=== PATIENT | male | born 1990 | race Caucasian/White ===

== ENCOUNTER 2018-05-31 21:33 | Observation (INO) ==
[2018-05-31] MEDS ORDERED: Sod Chloride 0.9% Inj 1,000 ML IV.SIG ONE ×2 (21:59→22:01)
[2018-05-31] MEDS ORDERED: Pantoprazole Inj 40 MG Vial IV.PUSH STA (22:10)
--- NOTE | 2018-05-31 22:10 | ED ---
HPI General Chief complaint: Arrhythmia/Palpitations Stated complaint: Blood pressure up/Racing heart/Nausea/V x 1 mo Time Seen by Provider: 05/31/18 21:53 History of Present Illness HPI narrative: 27-year-old male here for evaluation of nausea vomiting for the last month . Patient drinks heavily at least 6 packs a day, has been having nausea and vomiting, today he woke up with palpitations and only had one beer because he was not feeling well, he came to the ER for further evaluation. He denies any blood in the stool or in the vomit, he has no abdominal pain or chest pain or shortness of breath. Related Data Home Medications Medication Instructions Recorded Confirmed No Known Home Medications 05/31/18 05/31/18 Previous Rx's Medication Instructions Recorded chlordiazepoxide HCl 10 mg PO Q12HR #10 cap 06/02/18 escitalopram oxalate [Lexapro] 10 mg PO DAILY #30 tab 06/02/18 pantoprazole [Protonix] 40 mg PO DAILY #14 tab 06/02/18 Allergies Allergy/AdvReac Type Severity Reaction Status Date / Time No Known Allergies Allergy Unverified 05/31/18 22:20 Review of Systems Except as stated in HPI: all other systems reviewed are negative [facility] Family History Family History Other Coronary disease DM type 2 (diabetes mellitus, type 2) Hypertension Social History Social History Substance History: No History of Abuse Second Hand Smoke Exposure: No Smoking Status: Never smoker How Often Do You Have a Drink Containing Alcohol: 4 or more times a week (1.5 L of liquor) Recent Travel in [facility] within the Last 8 Weeks: No Recent Out of Country Travel within the Last 8 Weeks: No Exam Narrative Exam Narrative: GENERAL: Alert oriented 3, tachycardia SKIN: Focused skin assessment warm/dry. HEAD: Atraumatic. Normocephalic. EYES: Pupils equal and round. No scleral icterus. No injection or drainage. ENT: No nasal bleeding or discharge. Mucous membranes pink and moist. NECK: Trachea midline. No JVD. CARDIOVASCULAR: Regular rate and rhythm. No murmur appreciated. RESPIRATORY: No accessory muscle use. Clear to auscultation. Breath sounds equal bilaterally. GASTROINTESTINAL: Abdomen soft, non-tender, nondistended. Hepatic and splenic margins not palpable. MUSCULOSKELETAL: No obvious deformities. No clubbing. No cyanosis. No edema. NEUROLOGICAL: Awake and alert. No obvious cranial nerve deficits. Motor grossly within normal limits. Normal speech. PSYCHIATRIC: Appropriate mood and affect; insight and judgment normal. Procedures Hemaprompt Stool Procedural Steps Taken: specimen placed in appropriate test area Hemaprompt Stool Result: positive Course Initial Documented Vital Signs Temperature 99.0 F 05/31/18 21:45 Pulse Rate 138 H 05/31/18 21:45 Respiratory Rate 18 05/31/18 21:45 Blood Pressure 159/114 H 05/31/18 21:45 Pulse Oximetry 97 05/31/18 21:45 Last Documented Vital Signs Temperature 97.7 F 06/02/18 16:00 Pulse Rate 80 06/02/18 16:00 Respiratory Rate 18 06/02/18 16:00 Blood Pressure 136/95 H 06/02/18 16:00 Pulse Oximetry 98 06/02/18 16:00 Medical Decision Making MDM Narrative Medical decision making narrative: 27-year-old male here for evaluation of nausea vomiting and tachycardia, when arrived to the ER heart rate was 130, sinus rhythm, rectal exam positive for occult blood.27-year-old male here for evaluation of nausea vomiting and tachycardia, when arrived to the ER heart rate was 130, sinus rhythm, rectal exam positive for occult blood. Patient will be admitted for further evaluation. Lab Data Result diagrams: 06/02/18 04:42 06/02/18 04:42 Lab Results 05/31/18 05/31/18 05/31/18 Range/Units 22:07 22:07 22:07 CBC w Diff Slide review pending WBC 3.4 L (4.0-11.0) th/mm3 RBC 4.27 L (4.50-5.90) mil/mm3 Hgb 14.2 (13.0-17.0) gm/dL Hct 41.7 (39.0-51.0) % MCV 97.6 (80.0-100.0) fL MCH 33.3 (27.0-34.0) pg MCHC 34.1 (32.0-36.0) % RDW 14.1 (11.6-17.2) % Plt Count 147 L (150-450) th/mm3 MPV 8.5 (7.0-11.0) fL Neut % (Auto) (16.0-70.0) % Lymph % (Auto) (9.0-44.0) % [place] % (Auto) (0.0-8.0) % Eos % (Auto) (0.0-4.0) % Baso % (Auto) (0.0-2.0) % Neut # (Auto) (1.8-7.7) th/mm3 Lymph # (Auto) (1.0-4.8) th/mm3 [place] # (Auto) (0.0-0.9) th/mm3 Eos # (Auto) (0.0-0.4) th/mm3 Baso # (Auto) (0.0-0.2) th/mm3 WBC Differential Manual diff final Seg Neuts % (Manual) 57 (16-70) % Lymphocytes % (Manual) 37 (9-44) % Monocytes % (Manual) 4 (0-8) % Basophils % (Manual) 2 (0-2) % Abs Neuts (Manual) 1.9 (1.8-7.7) th/mm3 Differential Comment . Platelet Estimate Low L (Normal) Platelet Morphology Normal (Normal) RBC Morphology Normal (Normal) PT (9.8-11.6) sec INR Ratio APTT (24.3-30.1) sec Sodium 135 L (136-145) meq/L Potassium 3.4 L (3.5-5.1) meq/L Chloride 98 (98-107) meq/L Carbon Dioxide 25.6 (21.0-32.0) meq/L Anion Gap 11 (5-15) meq/L BUN 7 (7-18) mg/dL Creatinine 1.00 (0.60-1.30) mg/dL Estimated GFR Greater than 89 (>89) mL/min Random Glucose 109 H (74-106) mg/dL Calcium 9.0 (8.5-10.1) mg/dL Iron (65-175) mcg/dL TIBC (250-450) mcg/dL % Saturation (20-50) % Total Bilirubin 1.8 H (0.2-1.0) mg/dL Direct Bilirubin (0.0-0.2) mg/dL Indirect Bilirubin (0.0-0.8) mg/dL AST 566 H (15-37) U/L ALT 259 H (12-78) U/L Alkaline Phosphatase 116 (45-117) U/L Ammonia (11-32) mcmol/L Total Protein 8.3 H (6.4-8.2) g/dL Albumin 3.7 (3.4-5.0) g/dL Ceruloplasmin (18-36) mg/dL TSH (0.358-3.740) uIU/mL Free T3 (2.18-3.98) pg/mL Urine Color (Yellw/Straw) Urine Clarity (Clear) Urine pH (5.0-8.5) Ur Specific [place] (1.002-1.035) Urine Protein (Neg-Trace) mg/dL Urine Glucose (UA) (Negative) mg/dL Urine Ketones (Negative) mg/dL Urine Occult Blood (Negative) Urine Nitrate (Negative) Urine Bilirubin (Negative) Urine Urobilinogen (Less than 2) mg/dL Ur Leukocyte Esterase (Negative) Ur Squamous Epith Cells (0-5) /hpf Micro UA Comment Urine Culture Comments IgA (81-463) mg/dL Rheumatoid Factor (<14) IU/mL VERNON Screen (NEGATIVE) VERNON Titer VERNON Pattern SS-A Antibody (<1.0 NEGATIVE) AI SS-B Antibody (<1.0 NEGATIVE) AI Sm (Colon) Antibody (<1.0 NEGATIVE) AI SM/AUDITOR IN CHARGE Antibody (<1.0 NEGATIVE) AI Scl-70 Antibody (<1.0 NEGATIVE) AI Anti-ds DNA Titer (Crith) Anti-ds DNA (Crithidia) (NEGATIVE) Mitochondria M2 IgG Ab (0-20.0) U Anti-Smooth Muscle Ab (Negative) Endomysial Ab Titer Endomysial IgA Ab Tiss Transglutamin IgG Tiss Transglutamin IgA (0-4) U/mL Celiac Disease Interp Hepatitis A IgM Ab (Nonreactive) Hep Bs Antigen (Nonreactive) Hep B Core IgM Ab (Nonreactive) Hep C IgG Ab (Nonreactive) Blood Type O Positive Blood Type Recheck Required Antibody Screen Negative 05/31/18 05/31/18 06/01/18 Range/Units 22:07 22:58 05:20 CBC w Diff WBC (4.0-11.0) th/mm3 RBC (4.50-5.90) mil/mm3 Hgb (13.0-17.0) gm/dL Hct (39.0-51.0) % MCV (80.0-100.0) fL MCH (27.0-34.0) pg MCHC (32.0-36.0) % RDW (11.6-17.2) % Plt Count (150-450) th/mm3 MPV (7.0-11.0) fL Neut % (Auto) (16.0-70.0) % Lymph % (Auto) (9.0-44.0) % [place] % (Auto) (0.0-8.0) % Eos % (Auto) (0.0-4.0) % Baso % (Auto) (0.0-2.0) % Neut # (Auto) (1.8-7.7) th/mm3 Lymph # (Auto) (1.0-4.8) th/mm3 [place] # (Auto) (0.0-0.9) th/mm3 Eos # (Auto) (0.0-0.4) th/mm3 Baso # (Auto) (0.0-0.2) th/mm3 WBC Differential Seg Neuts % (Manual) (16-70) % Lymphocytes % (Manual) (9-44) % Monocytes % (Manual) (0-8) % Basophils % (Manual) (0-2) % Abs Neuts (Manual) (1.8-7.7) th/mm3 Differential Comment Platelet Estimate (Normal) Platelet Morphology (Normal) RBC Morphology (Normal) PT 10.5 (9.8-11.6) sec INR 1.0 Ratio APTT 22.7 L (24.3-30.1) sec Sodium 139 (136-145) meq/L Potassium 3.5 (3.5-5.1) meq/L Chloride 102 (98-107) meq/L Carbon Dioxide 27.0 (21.0-32.0) meq/L Anion Gap 10 (5-15) meq/L BUN 5 L (7-18) mg/dL Creatinine 0.92 (0.60-1.30) mg/dL Estimated GFR Greater than 89 (>89) mL/min Random Glucose 100 (74-106) mg/dL Calcium 8.2 L D (8.5-10.1) mg/dL Iron (65-175) mcg/dL TIBC (250-450) mcg/dL % Saturation (20-50) % Total Bilirubin 1.8 H (0.2-1.0) mg/dL Direct Bilirubin (0.0-0.2) mg/dL Indirect Bilirubin (0.0-0.8) mg/dL AST 399 H (15-37) U/L ALT 207 H (12-78) U/L Alkaline Phosphatase 88 (45-117) U/L Ammonia (11-32) mcmol/L Total Protein 6.8 D (6.4-8.2) g/dL Albumin 3.2 L (3.4-5.0) g/dL Ceruloplasmin (18-36) mg/dL TSH (0.358-3.740) uIU/mL Free T3 (2.18-3.98) pg/mL Urine Color Yellow (Yellw/Straw) Urine Clarity Clear (Clear) Urine pH 6.0 (5.0-8.5) Ur Specific [place] Less/equal 1.005 (1.002-1.035) Urine Protein Negative (Neg-Trace) mg/dL Urine Glucose (UA) Negative (Negative) mg/dL Urine Ketones Negative (Negative) mg/dL Urine Occult Blood Negative (Negative) Urine Nitrate Negative (Negative) Urine Bilirubin Negative (Negative) Urine Urobilinogen 0.2 (Less than 2) mg/dL Ur Leukocyte Esterase Negative (Negative) Ur Squamous Epith Cells 0-5 (0-5) /hpf Micro UA Comment Culture not ind Urine Culture Comments Culture not ind IgA (81-463) mg/dL Rheumatoid Factor (<14) IU/mL VERNON Screen (NEGATIVE) VERNON Titer VERNON Pattern SS-A Antibody (<1.0 NEGATIVE) AI SS-B Antibody (<1.0 NEGATIVE) AI Sm (Colon) Antibody (<1.0 NEGATIVE) AI SM/AUDITOR IN CHARGE Antibody (<1.0 NEGATIVE) AI Scl-70 Antibody (<1.0 NEGATIVE) AI Anti-ds DNA Titer (Crith) Anti-ds DNA (Crithidia) (NEGATIVE) Mitochondria M2 IgG Ab (0-20.0) U Anti-Smooth Muscle Ab (Negative) Endomysial Ab Titer Endomysial IgA Ab Tiss Transglutamin IgG Tiss Transglutamin IgA (0-4) U/mL Celiac Disease Interp Hepatitis A IgM Ab (Nonreactive) Hep Bs Antigen (Nonreactive) Hep B Core IgM Ab (Nonreactive) Hep C IgG Ab (Nonreactive) Blood Type Blood Type Recheck Antibody Screen 06/01/18 06/01/18 06/01/18 Range/Units 05:25 12:40 12:40 CBC w Diff Auto diff final WBC 3.7 L (4.0-11.0) th/mm3 RBC 3.80 L (4.50-5.90) mil/mm3 Hgb 12.6 L (13.0-17.0) gm/dL Hct 37.2 L (39.0-51.0) % MCV 97.8 (80.0-100.0) fL MCH 33.3 (27.0-34.0) pg MCHC 34.0 (32.0-36.0) % RDW 13.8 (11.6-17.2) % Plt Count 126 L (150-450) th/mm3 MPV 8.8 (7.0-11.0) fL Neut % (Auto) 43.2 (16.0-70.0) % Lymph % (Auto) 47.3 H (9.0-44.0) % [place] % (Auto) 8.0 (0.0-8.0) % Eos % (Auto) 0.7 (0.0-4.0) % Baso % (Auto) 0.8 (0.0-2.0) % Neut # (Auto) 1.6 L (1.8-7.7) th/mm3 Lymph # (Auto) 1.8 (1.0-4.8) th/mm3 [place] # (Auto) 0.3 (0.0-0.9) th/mm3 Eos # (Auto) 0.0 (0.0-0.4) th/mm3 Baso # (Auto) 0.0 (0.0-0.2) th/mm3 WBC Differential . Seg Neuts % (Manual) (16-70) % Lymphocytes % (Manual) (9-44) % Monocytes % (Manual) (0-8) % Basophils % (Manual) (0-2) % Abs Neuts (Manual) (1.8-7.7) th/mm3 Differential Comment . Platelet Estimate (Normal) Platelet Morphology (Normal) RBC Morphology (Normal) PT (9.8-11.6) sec INR Ratio APTT (24.3-30.1) sec Sodium (136-145) meq/L Potassium (3.5-5.1) meq/L Chloride (98-107) meq/L Carbon Dioxide (21.0-32.0) meq/L Anion Gap (5-15) meq/L BUN (7-18) mg/dL Creatinine (0.60-1.30) mg/dL Estimated GFR (>89) mL/min Random Glucose (74-106) mg/dL Calcium (8.5-10.1) mg/dL Iron (65-175) mcg/dL TIBC (250-450) mcg/dL % Saturation (20-50) % Total Bilirubin (0.2-1.0) mg/dL Direct Bilirubin (0.0-0.2) mg/dL Indirect Bilirubin (0.0-0.8) mg/dL AST (15-37) U/L ALT (12-78) U/L Alkaline Phosphatase (45-117) U/L Ammonia 65 H (11-32) mcmol/L Total Protein (6.4-8.2) g/dL Albumin (3.4-5.0) g/dL Ceruloplasmin (18-36) mg/dL TSH (0.358-3.740) uIU/mL Free T3 (2.18-3.98) pg/mL Urine Color (Yellw/Straw) Urine Clarity (Clear) Urine pH (5.0-8.5) Ur Specific [place] (1.002-1.035) Urine Protein (Neg-Trace) mg/dL Urine Glucose (UA) (Negative) mg/dL Urine Ketones (Negative) mg/dL Urine Occult Blood (Negative) Urine Nitrate (Negative) Urine Bilirubin (Negative) Urine Urobilinogen (Less than 2) mg/dL Ur Leukocyte Esterase (Negative) Ur Squamous Epith Cells (0-5) /hpf Micro UA Comment Urine Culture Comments IgA (81-463) mg/dL Rheumatoid Factor (<14) IU/mL VERNON Screen (NEGATIVE) VERNON Titer VERNON Pattern SS-A Antibody (<1.0 NEGATIVE) AI SS-B Antibody (<1.0 NEGATIVE) AI Sm (Colon) Antibody (<1.0 NEGATIVE) AI SM/AUDITOR IN CHARGE Antibody (<1.0 NEGATIVE) AI Scl-70 Antibody (<1.0 NEGATIVE) AI Anti-ds DNA Titer (Crith) Anti-ds DNA (Crithidia) (NEGATIVE) Mitochondria M2 IgG Ab (0-20.0) U Anti-Smooth Muscle Ab (Negative) Endomysial Ab Titer Endomysial IgA Ab Tiss Transglutamin IgG Tiss Transglutamin IgA (0-4) U/mL Celiac Disease Interp Hepatitis A IgM Ab Nonreactive (Nonreactive) Hep Bs Antigen Nonreactive (Nonreactive) Hep B Core IgM Ab Nonreactive (Nonreactive) Hep C IgG Ab Nonreactive (Nonreactive) Blood Type Blood Type Recheck Antibody Screen 06/01/18 06/01/18 06/01/18 Range/Units 18:15 18:15 18:15 CBC w Diff WBC 3.5 L (4.0-11.0) th/mm3 RBC 3.63 L (4.50-5.90) mil/mm3 Hgb 12.4 L (13.0-17.0) gm/dL Hct 35.1 L (39.0-51.0) % MCV 96.8 (80.0-100.0) fL MCH 34.1 H (27.0-34.0) pg MCHC 35.3 (32.0-36.0) % RDW 14.4 (11.6-17.2) % Plt Count 125 L (150-450) th/mm3 MPV 9.2 (7.0-11.0) fL Neut % (Auto) (16.0-70.0) % Lymph % (Auto) (9.0-44.0) % [place] % (Auto) (0.0-8.0) % Eos % (Auto) (0.0-4.0) % Baso % (Auto) (0.0-2.0) % Neut # (Auto) (1.8-7.7) th/mm3 Lymph # (Auto) (1.0-4.8) th/mm3 [place] # (Auto) (0.0-0.9) th/mm3 Eos # (Auto) (0.0-0.4) th/mm3 Baso # (Auto) (0.0-0.2) th/mm3 WBC Differential Seg Neuts % (Manual) (16-70) % Lymphocytes % (Manual) (9-44) % Monocytes % (Manual) (0-8) % Basophils % (Manual) (0-2) % Abs Neuts (Manual) (1.8-7.7) th/mm3 Differential Comment Platelet Estimate (Normal) Platelet Morphology (Normal) RBC Morphology (Normal) PT (9.8-11.6) sec INR Ratio APTT (24.3-30.1) sec Sodium 138 (136-145) meq/L Potassium 3.4 L (3.5-5.1) meq/L Chloride 104 (98-107) meq/L Carbon Dioxide 25.5 (21.0-32.0) meq/L Anion Gap 9 (5-15) meq/L BUN 7 (7-18) mg/dL Creatinine 0.89 (0.60-1.30) mg/dL Estimated GFR Greater than 89 (>89) mL/min Random Glucose 162 H (74-106) mg/dL Calcium 8.4 L (8.5-10.1) mg/dL Iron 80 (65-175) mcg/dL TIBC 190 L (250-450) mcg/dL % Saturation 42.0 (20-50) % Total Bilirubin 1.9 H (0.2-1.0) mg/dL Direct Bilirubin (0.0-0.2) mg/dL Indirect Bilirubin (0.0-0.8) mg/dL AST 421 H (15-37) U/L ALT 203 H (12-78) U/L Alkaline Phosphatase 99 (45-117) U/L Ammonia (11-32) mcmol/L Total Protein 6.9 (6.4-8.2) g/dL Albumin 3.0 L (3.4-5.0) g/dL Ceruloplasmin 15 L (18-36) mg/dL TSH 5.930 H (0.358-3.740) uIU/mL Free T3 (2.18-3.98) pg/mL Urine Color (Yellw/Straw) Urine Clarity (Clear) Urine pH (5.0-8.5) Ur Specific [place] (1.002-1.035) Urine Protein (Neg-Trace) mg/dL Urine Glucose (UA) (Negative) mg/dL Urine Ketones (Negative) mg/dL Urine Occult Blood (Negative) Urine Nitrate (Negative) Urine Bilirubin (Negative) Urine Urobilinogen (Less than 2) mg/dL Ur Leukocyte Esterase (Negative) Ur Squamous Epith Cells (0-5) /hpf Micro UA Comment Urine Culture Comments IgA 349 (81-463) mg/dL Rheumatoid Factor Less than 14 (<14) IU/mL VERNON Screen Negative (NEGATIVE) VERNON Titer ND VERNON Pattern ND SS-A Antibody <1.0 neg (<1.0 NEGATIVE) AI SS-B Antibody <1.0 neg (<1.0 NEGATIVE) AI Sm (Colon) Antibody <1.0 neg (<1.0 NEGATIVE) AI SM/AUDITOR IN CHARGE Antibody <1.0 neg (<1.0 NEGATIVE) AI Scl-70 Antibody <1.0 neg (<1.0 NEGATIVE) AI Anti-ds DNA Titer (Crith) ND Anti-ds DNA (Crithidia) Negative (NEGATIVE) Mitochondria M2 IgG Ab Less than 20.0 (0-20.0) U Anti-Smooth Muscle Ab Negative (Negative) Endomysial Ab Titer ND Endomysial IgA Ab ND Tiss Transglutamin IgG ND Tiss Transglutamin IgA Less than 1 (0-4) U/mL Celiac Disease Interp Hepatitis A IgM Ab (Nonreactive) Hep Bs Antigen (Nonreactive) Hep B Core IgM Ab (Nonreactive) Hep C IgG Ab (Nonreactive) Blood Type Blood Type Recheck Antibody Screen 06/02/18 06/02/18 06/02/18 Range/Units 04:42 04:42 04:42 CBC w Diff Auto diff final WBC 3.9 L (4.0-11.0) th/mm3 RBC 3.81 L (4.50-5.90) mil/mm3 Hgb 12.7 L (13.0-17.0) gm/dL Hct 37.8 L (39.0-51.0) % MCV 99.4 (80.0-100.0) fL MCH 33.3 (27.0-34.0) pg MCHC 33.5 (32.0-36.0) % RDW 14.1 (11.6-17.2) % Plt Count 122 L (150-450) th/mm3 MPV 8.8 (7.0-11.0) fL Neut % (Auto) 54.7 (16.0-70.0) % Lymph % (Auto) 37.1 (9.0-44.0) % [place] % (Auto) 6.0 (0.0-8.0) % Eos % (Auto) 1.4 (0.0-4.0) % Baso % (Auto) 0.8 (0.0-2.0) % Neut # (Auto) 2.2 (1.8-7.7) th/mm3 Lymph # (Auto) 1.4 (1.0-4.8) th/mm3 [place] # (Auto) 0.2 (0.0-0.9) th/mm3 Eos # (Auto) 0.1 (0.0-0.4) th/mm3 Baso # (Auto) 0.0 (0.0-0.2) th/mm3 WBC Differential . Seg Neuts % (Manual) (16-70) % Lymphocytes % (Manual) (9-44) % Monocytes % (Manual) (0-8) % Basophils % (Manual) (0-2) % Abs Neuts (Manual) (1.8-7.7) th/mm3 Differential Comment . Platelet Estimate (Normal) Platelet Morphology (Normal) RBC Morphology (Normal) PT (9.8-11.6) sec INR Ratio APTT (24.3-30.1) sec Sodium 142 (136-145) meq/L Potassium 3.6 (3.5-5.1) meq/L Chloride 107 (98-107) meq/L Carbon Dioxide 23.9 (21.0-32.0) meq/L Anion Gap 11 (5-15) meq/L BUN 6 L (7-18) mg/dL Creatinine 0.82 (0.60-1.30) mg/dL Estimated GFR Greater than 89 (>89) mL/min Random Glucose 99 (74-106) mg/dL Calcium 8.3 L (8.5-10.1) mg/dL Iron (65-175) mcg/dL TIBC (250-450) mcg/dL % Saturation (20-50) % Total Bilirubin 1.6 H (0.2-1.0) mg/dL Direct Bilirubin 0.8 H (0.0-0.2) mg/dL Indirect Bilirubin 0.8 (0.0-0.8) mg/dL AST 360 H (15-37) U/L ALT 187 H (12-78) U/L Alkaline Phosphatase 86 (45-117) U/L Ammonia (11-32) mcmol/L Total Protein 6.6 (6.4-8.2) g/dL Albumin 3.1 L (3.4-5.0) g/dL Ceruloplasmin (18-36) mg/dL TSH (0.358-3.740) uIU/mL Free T3 (2.18-3.98) pg/mL Urine Color (Yellw/Straw) Urine Clarity (Clear) Urine pH (5.0-8.5) Ur Specific [place] (1.002-1.035) Urine Protein (Neg-Trace) mg/dL Urine Glucose (UA) (Negative) mg/dL Urine Ketones (Negative) mg/dL Urine Occult Blood (Negative) Urine Nitrate (Negative) Urine Bilirubin (Negative) Urine Urobilinogen (Less than 2) mg/dL Ur Leukocyte Esterase (Negative) Ur Squamous Epith Cells (0-5) /hpf Micro UA Comment Urine Culture Comments IgA (81-463) mg/dL Rheumatoid Factor (<14) IU/mL VERNON Screen (NEGATIVE) VERNON Titer VERNON Pattern SS-A Antibody (<1.0 NEGATIVE) AI SS-B Antibody (<1.0 NEGATIVE) AI Sm (Colon) Antibody (<1.0 NEGATIVE) AI SM/AUDITOR IN CHARGE Antibody (<1.0 NEGATIVE) AI Scl-70 Antibody (<1.0 NEGATIVE) AI Anti-ds DNA Titer (Crith) Anti-ds DNA (Crithidia) (NEGATIVE) Mitochondria M2 IgG Ab (0-20.0) U Anti-Smooth Muscle Ab (Negative) Endomysial Ab Titer Endomysial IgA Ab Tiss Transglutamin IgG Tiss Transglutamin IgA (0-4) U/mL Celiac Disease Interp Hepatitis A IgM Ab (Nonreactive) Hep Bs Antigen (Nonreactive) Hep B Core IgM Ab (Nonreactive) Hep C IgG Ab (Nonreactive) Blood Type Blood Type Recheck Antibody Screen 06/02/18 Range/Units 04:42 CBC w Diff WBC (4.0-11.0) th/mm3 RBC (4.50-5.90) mil/mm3 Hgb (13.0-17.0) gm/dL Hct (39.0-51.0) % MCV (80.0-100.0) fL MCH (27.0-34.0) pg MCHC (32.0-36.0) % RDW (11.6-17.2) % Plt Count (150-450) th/mm3 MPV (7.0-11.0) fL Neut % (Auto) (16.0-70.0) % Lymph % (Auto) (9.0-44.0) % [place] % (Auto) (0.0-8.0) % Eos % (Auto) (0.0-4.0) % Baso % (Auto) (0.0-2.0) % Neut # (Auto) (1.8-7.7) th/mm3 Lymph # (Auto) (1.0-4.8) th/mm3 [place] # (Auto) (0.0-0.9) th/mm3 Eos # (Auto) (0.0-0.4) th/mm3 Baso # (Auto) (0.0-0.2) th/mm3 WBC Differential Seg Neuts % (Manual) (16-70) % Lymphocytes % (Manual) (9-44) % Monocytes % (Manual) (0-8) % Basophils % (Manual) (0-2) % Abs Neuts (Manual) (1.8-7.7) th/mm3 Differential Comment Platelet Estimate (Normal) Platelet Morphology (Normal) RBC Morphology (Normal) PT (9.8-11.6) sec INR Ratio APTT (24.3-30.1) sec Sodium (136-145) meq/L Potassium (3.5-5.1) meq/L Chloride (98-107) meq/L Carbon Dioxide (21.0-32.0) meq/L Anion Gap (5-15) meq/L BUN (7-18) mg/dL Creatinine (0.60-1.30) mg/dL Estimated GFR (>89) mL/min Random Glucose (74-106) mg/dL Calcium (8.5-10.1) mg/dL Iron (65-175) mcg/dL TIBC (250-450) mcg/dL % Saturation (20-50) % Total Bilirubin (0.2-1.0) mg/dL Direct Bilirubin (0.0-0.2) mg/dL Indirect Bilirubin (0.0-0.8) mg/dL AST (15-37) U/L ALT (12-78) U/L Alkaline Phosphatase (45-117) U/L Ammonia (11-32) mcmol/L Total Protein (6.4-8.2) g/dL Albumin (3.4-5.0) g/dL Ceruloplasmin (18-36) mg/dL TSH (0.358-3.740) uIU/mL Free T3 3.06 (2.18-3.98) pg/mL Urine Color (Yellw/Straw) Urine Clarity (Clear) Urine pH (5.0-8.5) Ur Specific [place] (1.002-1.035) Urine Protein (Neg-Trace) mg/dL Urine Glucose (UA) (Negative) mg/dL Urine Ketones (Negative) mg/dL Urine Occult Blood (Negative) Urine Nitrate (Negative) Urine Bilirubin (Negative) Urine Urobilinogen (Less than 2) mg/dL Ur Leukocyte Esterase (Negative) Ur Squamous Epith Cells (0-5) /hpf Micro UA Comment Urine Culture Comments IgA (81-463) mg/dL Rheumatoid Factor (<14) IU/mL VERNON Screen (NEGATIVE) VERNON Titer VERNON Pattern SS-A Antibody (<1.0 NEGATIVE) AI SS-B Antibody (<1.0 NEGATIVE) AI Sm (Colon) Antibody (<1.0 NEGATIVE) AI SM/AUDITOR IN CHARGE Antibody (<1.0 NEGATIVE) AI Scl-70 Antibody (<1.0 NEGATIVE) AI Anti-ds DNA Titer (Crith) Anti-ds DNA (Crithidia) (NEGATIVE) Mitochondria M2 IgG Ab (0-20.0) U Anti-Smooth Muscle Ab (Negative) Endomysial Ab Titer Endomysial IgA Ab Tiss Transglutamin IgG Tiss Transglutamin IgA (0-4) U/mL Celiac Disease Interp Hepatitis A IgM Ab (Nonreactive) Hep Bs Antigen (Nonreactive) Hep B Core IgM Ab (Nonreactive) Hep C IgG Ab (Nonreactive) Blood Type Blood Type Recheck Antibody Screen Imaging Data Radiologist's impression: Chest X-Ray 05/31/18 21:59 CONCLUSION: No acute cardiopulmonary process. Abdomen/Pelvis CT 06/01/18 07:06 CONCLUSION: Discharge Plan Discharge Disposition Patient Disposition: 30 Still Patient Discharge Condition Condition: Stable Discharge Order Discharge Orders: Discharge Order (Routine); Ordered 06/02/18 Ordered By: Mary Meehan Discharge Details Anticipated Discharge Date: 06/02/18 Diagnosis: Gastritis Physicians Team ED Provider: Jimmy Ho Primary Care Provider: Primary Care Deepa Youssef Attending Provider: Mary Meehan Other Providers: Oracio Reagan Status ED Status: Left Department Discharge Information Discharge Date/Time: 06/01/18 01:36
[2018-05-31 22:20] LABS: Hematocrit 41.7 % (39.0-51.0); Hemoglobin 14.2 gm/dL (13.0-17.0); Mean Corpuscular HGB Conc 34.1 % (32.0-36.0); Mean Corpuscular Hemoglobin 33.3 pg (27.0-34.0); Mean Corpuscular Volume 97.6 fL (80.0-100.0); Mean Platelet Volume 8.5 fL (7.0-11.0); Platelet Count 147 th/mm3 (150-450); Red Blood Count 4.27 mil/mm3 (4.50-5.90); Red Cell Distribution Width 14.1 % (11.6-17.2); White Blood Count 3.4 th/mm3 (4.0-11.0)
[2018-05-31 22:33] LABS: Chloride 98 meq/L (98-107); Potassium 3.4 meq/L (3.5-5.1); Sodium 135 meq/L (136-145)
[2018-05-31 22:36] LABS: Albumin 3.7 g/dL (3.4-5.0); Anion Gap 11 meq/L (5-15); Carbon Dioxide 25.6 meq/L (21.0-32.0); Glucose,Random 109 mg/dL (74-106)
[2018-05-31 22:37] LABS: Blood Urea Nitrogen 7 mg/dL (7-18)
[2018-05-31 22:38] LABS: Activated Partial Thrombo Time 22.7 sec (24.3-30.1); Prothrombin Time 10.5 sec (9.8-11.6)
[2018-05-31 22:40] LABS: Alanine Aminotransferase 259 U/L (12-78); Aspartate Aminotransferase 566 U/L (15-37); Glomerular Filtration Rate Greater Than 89 mL/min (>89)
[2018-05-31 22:41] LABS: Total Protein 8.3 g/dL (6.4-8.2)
--- NOTE | 2018-05-31 22:41 | XR ---
EXAM DATE: 05/31/2018 10:21 PM EDT AGE/SEX: 27 years / Male INDICATIONS: Elevated heart rate and blood pressure. CLINICAL DATA: This is the patient's initial encounter. Patient reports that signs and symptoms have been present for 1 day and indicates a pain score of 0/10. MEDICAL/SURGICAL HISTORY: None. None. COMPARISON: No prior exams available for comparison. FINDINGS: A single AP view of the chest demonstrates the lungs to be symmetrically aerated without evidence of mass, infiltrate or effusion. The cardiomediastinal contours are unremarkable. Osseous structures a re intact. CONCLUSION: No acute cardiopulmonary process. Electronically signed by: Julian Milligan MD 05/31/2018 10:40 PM EDT
[2018-05-31 22:42] LABS: Alkaline Phosphatase 116 U/L (45-117)
[2018-05-31 23:14] LABS: Lymphocytes 37 % (9-44); Monocytes 4 % (0-8); Platelet Morphology Normal (Normal); RBC Morphology Normal (Normal)
[2018-05-31 23:20] LABS: Bilirubin,Urine Negative (Negative); Clarity,Urine Clear (Clear); Color,Urine Yellow (Yellw/Straw); Glucose,Urine (UA) Negative (Negative); Leukocyte Esterase,Urine Negative (Negative); Nitrite,Urine Negative (Negative); Specific Gravity,Urine Less/Equal 1.005 (1.002-1.035); Urobilinogen,Urine 0.2 mg/dL (Less than 2)
[2018-05-31 23:30] LABS: Squamous Epithelial Cell,Urine 0-5 /hpf (0-5)
[2018-06-01] MEDS ORDERED: Acetaminophen 325 MG Tablet PO PRN (01:06)
[2018-06-01] MEDS ORDERED: Bisacodyl 10 MG Supp RECTAL PRN (01:06)
[2018-06-01] MEDS ORDERED: LORazepam 1 MG Tablet PO PRN (01:08)
[2018-06-01] MEDS ORDERED: Haloperidol Inj 5 MG/ML Ampul IV.PUSH PRN (01:08)
[2018-06-01] MEDS: Sod Chloride 0.9% Inj 1,000 ML IV.CONT SCH ×3 (02:24→21:28)
[2018-06-01 05:49] LABS: Baso % (Auto) 0.8 % (0.0-2.0); Eos % (Auto) 0.7 % (0.0-4.0); Hematocrit 37.2 % (39.0-51.0); Hemoglobin 12.6 gm/dL (13.0-17.0); Lymph # (Auto) 1.8 th/mm3 (1.0-4.8); Lymph % (Auto) 47.3 % (9.0-44.0); Mean Corpuscular Hemoglobin 33.3 pg (27.0-34.0); Mean Corpuscular Volume 97.8 fL (80.0-100.0); Mean Platelet Volume 8.8 fL (7.0-11.0); Mono # (Auto) 0.3 th/mm3 (0.0-0.9); Neut # (Auto) 1.6 th/mm3 (1.8-7.7); Neut % (Auto) 43.2 % (16.0-70.0); Platelet Count 126 th/mm3 (150-450); Red Cell Distribution Width 13.8 % (11.6-17.2); White Blood Count 3.7 th/mm3 (4.0-11.0)
[2018-06-01 06:03] LABS: Chloride 102 meq/L (98-107); Potassium 3.5 meq/L (3.5-5.1); Sodium 139 meq/L (136-145)
[2018-06-01 06:54] LABS: Alanine Aminotransferase 207 U/L (12-78); Albumin 3.2 g/dL (3.4-5.0); Alkaline Phosphatase 88 U/L (45-117); Anion Gap 10 meq/L (5-15); Aspartate Aminotransferase 399 U/L (15-37); Blood Urea Nitrogen 5 mg/dL (7-18); Calcium 8.2 mg/dL (8.5-10.1); Glomerular Filtration Rate Greater Than 89 mL/min (>89); Glucose,Random 100 mg/dL (74-106); Total Protein 6.8 g/dL (6.4-8.2)
--- NOTE | 2018-06-01 07:18 | ECG ---
Date Performed: 05/31/2018 Time Performed: 22:28:50 PTAGE: 27 years EKG: SINUS TACHYCARDIA POSSIBLE RIGHT VENTRICULAR CONDUCTION DELAY ABNORMAL RHYTHM ECG NO PREVIOUS TRACING DOCTOR: Oscar George Interpretating Date/Time 06/01/2018 07:16:26
[2018-06-01] MEDS ORDERED: Diatrizoate Meglum/Diatrizoate Sod Liq 9 ML UDC PO ONE (08:00)
[2018-06-01] MEDS: Pantoprazole Inj 40 MG Vial IV.PUSH SCH ×2 (09:06→21:26)
--- NOTE | 2018-06-01 11:20 | P.HPIM ---
History of Present Illness Primary Care Physician: No Primary Care Physician Chief Complaint: Palpitations and headache History of Present Illness: Patient is a 27-year-old gentleman with no medical history who does drink at least 1.5 L alcohol a week who has come to the hospital complaining of increased heart rate, increased blood pressure and nausea and vomiting. This is been intermittent over the last 6 months. Yesterday had a headache and felt dizzy so he came to the emergency room. Patient otherwise has no medical problems. There was a rectal done in the emergency room positive and the patient's heart rate was in the 130s. He has since had a hemoglobin that went from 14 g to 12 g. There is no gross bleeding that the patient has seen. He denies any previous gastrointestinal related illness. He has not seen any dark or melanotic stools and has not had hematemesis. Since arrival here patient CIWA score has gone from 4-8 and the patient has required IV Ativan. This time he is comfortable - Diagnosis (1) Elevated LFTs (2) Elevated blood pressure reading (3) Heme positive stool (4) Tachycardia (5) Anemia (6) Alcohol dependence Review of Systems All other systems reviewed negative except as stated in HPI Cardiovascular: Reports fast heart rate Gastrointestinal: Reports nausea, Reports vomiting Neurologic: Reports dizziness PMFSH - History History Provided By: Patient - Medical History Medical History: Medical History (Last Reviewed 06/01/18 @ 11:11 by Mary Meehan MD) Alcoholic - Surgical History Surgical History: Surgical History (Last Reviewed 06/01/18 @ 11:12 by Mary Meehan MD) No history of previous surgery - Family History Family History: Family History (Last Updated 06/01/18 @ 11:12 by Mary Meehan MD) Other Coronary disease DM type 2 (diabetes mellitus, type 2) Hypertension - Tobacco History Second Hand Smoke Exposure: No Smoking Status: Never smoker - Alcohol History How Often Do You Have a Drink Containing Alcohol: 4 or more times a week (1.5 L of liquor) - Substance Use History Substance History: No History of Abuse - Travel History Recent Travel in the [place] Within the Last 8 Weeks: No Recent Travel Out of the Country Within the Last 8 Weeks: No - Immunization History Tetanus Immunization: >5 Years Hx Influenza Vaccine This Season: No Medications and Allergies Active Medications: Active Medications Acetaminophen (Tylenol) 650 mg PO Q4H PRN PRN Reason: Temp > 100.4 Al Hydroxide/Mg Hydroxide (Milk Of Magnesia Liq) 30 ml PO Q12H PRN PRN Reason: Mild Constipation Bisacodyl (Dulcolax Supp) 10 mg RECTAL DAILY PRN PRN Reason: SEVERE CONSITIPATION Chlordiazepoxide (Librium) 10 mg PO Q8H [facility] Flumazenil (Romazecon Inj) 0.2 mg IV.PUSH Q1M PRN PRN Reason: OVERSEDATION Haloperidol Lactate (Haldol Inj) 1 mg IV.PUSH Q15M PRN PRN Reason: for severe agitation Sodium Chloride (Ns Inj) 1,000 mls @ 100 mls/hr IV.CONT .Q10H [facility] Last Admin: 06/01/18 02:24 Dose: 100 mls/hr Lactulose (Lactulose Liq) 30 ml PO DAILY PRN PRN Reason: SEVERE CONSITIPATION Lorazepam (Ativan) 1 mg PO Q4H PRN PRN Reason: for CIWA 8-10 Lorazepam (Ativan) 2 mg PO Q2H PRN PRN Reason: for CIWA 11-14 Lorazepam (Ativan Inj) 2 mg IV.PUSH Q2H PRN PRN Reason: for CIWA 11-14 Lorazepam (Ativan Inj) 2 mg IV.PUSH Q1H PRN PRN Reason: for CIWA 15-20 Lorazepam (Ativan Inj) 2 mg IV.PUSH Q15M PRN PRN Reason: for CIWA > 20 Lorazepam (Ativan Inj) 1 mg IV.PUSH Q4H PRN PRN Reason: for CIWA 8-10 Last Admin: 06/01/18 02:24 Dose: 1 mg Ondansetron HCl (Zofran Inj) 4 mg IV.PUSH Q6H PRN PRN Reason: NAUSEA OR VOMITING Pantoprazole Sodium (Protonix Inj) 40 mg IV.PUSH Q12HR [facility] Last Admin: 06/01/18 09:06 Dose: 40 mg Sennosides (Senokot) 17.2 mg PO Q12H PRN PRN Reason: Moderate Constipation Allergies Allergy/AdvReac Type Severity Reaction Status Date / Time No Known Allergies Allergy Unverified 05/31/18 22:20 Home Medications Medication Instructions Recorded Confirmed Type No Known Home Medications 05/31/18 05/31/18 History Exam Vital signs: Vital Signs 05/31/18 21:45 05/31/18 23:00 06/01/18 00:00 Temperature 99.0 F 98.2 F 98.2 F Pulse Rate 138 H 120 H 112 H Respiratory Rate 18 18 16 Blood Pressure 159/114 H 160/102 H 158/85 H Pulse Oximetry 97 98 06/01/18 04:17 06/01/18 08:00 Temperature 97.7 F 98.2 F Pulse Rate 112 H 86 Respiratory Rate 22 16 Blood Pressure 150/103 H 156/102 H Pulse Oximetry Intake & Output 05/31/18 06/01/18 06/01/18 18:59 06:59 18:59 Intake Total 2240 / 2240 Output Total 1100 / 1100 Balance 1140 / 1140 Weight 74.9 kg Intake: IV 1999 NS Inj 1,000 ML @ Wide Open IV. 1999 SIG BOLUS ONE Rx#:[id number] Oral 240 / 240 Output: Urine 1100 / 1100 Other: Date of Last Bowel Movement 05/30/18 Weight On Admission 74.9 kg Narrative: GENERAL: Patient calm resting and without complaints SKIN: Warm and dry. No rashes or ecchymotic injuries EYES: Pupils equal and round. No scleral icterus. No injection or drainage. ENT: External ear exam normal. No acute nasal bleeding or discharge. Mucous membranes pink and moist. CARDIOVASCULAR: Regular rate and rhythm. No murmurs gallops or rubs appreciated RESPIRATORY: Good air flow and effort without accessory muscle use. Clear to auscultation. Breath sounds equal bilaterally. GASTROINTESTINAL: Abdomen soft, non-tender, nondistended. Hepatic and splenic margins not palpable. MUSCULOSKELETAL: Extremities without clubbing, cyanosis, or edema. No obvious deformities. NEUROLOGICAL: Awake and alert. No obvious cranial nerve deficits. Motor grossly within normal limits. Five out of 5 muscle strength in the arms and legs. Normal speech. Flat affect Results - Labs CBC & Chem 7: 06/01/18 05:25 06/01/18 05:20 Labs: Short CBC 05/31/18 06/01/18 Range/Units 22:07 05:25 WBC 3.4 L 3.7 L (4.0-11.0) th/mm3 Hgb 14.2 12.6 L (13.0-17.0) gm/dL Hct 41.7 37.2 L (39.0-51.0) % Plt Count 147 L 126 L (150-450) th/mm3 BMP 05/31/18 06/01/18 22:07 05:20 Sodium 135 L 139 Potassium 3.4 L 3.5 Chloride 98 102 Carbon Dioxide 25.6 27.0 BUN 7 5 L Creatinine 1.00 0.92 Calcium 9.0 8.2 L D Liver Function 05/31/18 06/01/18 Range/Units 22:07 05:20 Total Bilirubin 1.8 H 1.8 H (0.2-1.0) mg/dL AST 566 H 399 H (15-37) U/L ALT 259 H 207 H (12-78) U/L Alkaline Phosphatase 116 88 (45-117) U/L Albumin 3.7 3.2 L (3.4-5.0) g/dL Urine 05/31/18 Range/Units 22:58 Urine Color Yellow (Yellw/Straw) Urine Clarity Clear (Clear) Urine pH 6.0 (5.0-8.5) Ur Specific [place] Less/equal 1.005 (1.002-1.035) Urine Protein Negative (Neg-Trace) mg/dL Urine Glucose (UA) Negative (Negative) mg/dL - Imaging Impressions Chest X-Ray 05/31/18 21:59 CONCLUSION: Caprini VTE Risk Assessment Caprini VTE Risk Assessment: No/Low Risk (score <= 1) Caprini Risk Assessment Model: Point Value = 1 Point Value = 2 Point Value = 3 Point Value = 5 Age 41-60 Minor surgery BMI > 25 kg/m2 Swollen legs Varicose veins or History of unexplained or recurrent spontaneous Oral contraceptives or hormone replacement Sepsis (< 1 month) Serious lung disease, including pneumonia (< 1 month) Abnormal pulmonary function Acute myocardial infarction Congestive heart failure (< 1 month) History of inflammatory bowel disease Medical patient at bed rest Age 61-74 Arthroscopic surgery Major open surgery (> 45 min) Laparoscopic surgery (> 45 min) Malignancy Confined to bed (> 72 hours) Immobilizing plaster cast Central venous access Age >= 75 History of VTE Family history of VTE Factor V Leiden Prothrombin [id number] Lupus anticoagulant Anticardiolipin antibodies Elevated serum homocysteine Heparin-induced thrombocytopenia Other congenital or acquired thrombophilia Stroke (< 1 month) Elective arthroplasty Hip, pelvis, or leg fracture Acute spinal cord injury (< 1 month) Prophylaxis Regimen: Total Risk Factor Score Risk Level Prophylaxis Regimen 0-1 Low Early ambulation 2 Moderate Order ONE of the following: *Sequential Compression Device (SCD) *Heparin 5000 units SQ BID 3-4 Higher Order ONE of the following medications: *Heparin 5000 units SQ TID *Enoxaparin/Lovenox 40 mg SQ daily (WT < 150 kg, CrCl > 30 mL/min) *Enoxaparin/Lovenox 30 mg SQ daily (WT < 150 kg, CrCl > 10-29 mL/min) *Enoxaparin/Lovenox 30 mg SQ BID (WT < 150 kg, CrCl > 30 mL/min) AND/OR *Sequential Compression Device (SCD) 5 or more Highest Order ONE of the following medications: *Heparin 5000 units SQ TID (Preferred with Epidurals) *Enoxaparin/Lovenox 40 mg SQ daily (WT < 150 kg, CrCl > 30 mL/min) *Enoxaparin/Lovenox 30 mg SQ daily (WT < 150 kg, CrCl > 10-29 mL/min) *Enoxaparin/Lovenox 30 mg SQ BID (WT < 150 kg, CrCl > 30 mL/min) AND *Sequential Compression Device (SCD) Assessment and Plan - Assessment (1) Elevated LFTs Code(s): R94.5 - Abnormal results of liver function studies Status: Acute Plan: Likely secondary to alcohol, follow-up CT abdomen pelvis, follow-up hepatitis profile Improved (2) Elevated blood pressure reading Code(s): R03.0 - Elevated blood-pressure reading, without diagnosis of hypertension Status: Acute Plan: Probably secondary to acute alcohol withdrawal We will add clonidine Continue telemetry Continue Ciwa evaluation (3) Heme positive stool Code(s): R19.5 - Other fecal abnormalities Status: Acute Plan: Patient with long-standing history of alcohol consumption and may have evidence of gastritis or ulceration We will follow hemoglobin for transfusion needs and follow-up with GI for endoscopy eval (4) Tachycardia Code(s): R00.0 - Tachycardia, unspecified Status: Acute Plan: Continue telemetry Continue with CIWA assessments Add Librium for acute alcohol withdrawal (5) Anemia Code(s): D64.9 - Anemia, unspecified Status: Acute Plan: Likely secondary to acute GI losses Follow-up hemoglobin and transfuse as needed Endoscopy gastritis versus ulceration Continue proton pump inhibitor (6) Alcohol dependence Code(s): F10.20 - Alcohol dependence, uncomplicated Status: Acute Plan: [facility], he has maintained his school however and denies any loss relation with [facility] protocol Encourage outpatient rehab measures - Plan Discharge Planning: Likely discharge pending endoscopy plans H&P: Quality - VTE Deep Vein Thrombosis/Pulmonary Embolism Present on Admission: No
--- NOTE | 2018-06-01 11:26 | CT ---
EXAM DATE: 06/01/2018 11:19 AM EDT AGE/SEX: 27 years / Male INDICATIONS: Nausea and vomiting x 1 month. Elevated liver enzymes. CLINICAL DATA: This is the patient's initial encounter. Patient reports that signs and symptoms have been present for 1 month and indicates a pain score of 0/10. MEDICAL/SURGICAL HISTORY: . Alcoholic. None. RADIATION DOSE: 9.65 CTDI (mGy) COMPARISON: No prior exams available for comparison. TECHNIQUE: Multiple contiguous axial images were obtained through the abdomen. Images were obtained using multiple row detector helical technique. Using automated exposure control and adjustment of the mA and/or kV according to patient size, radiation dose was kept as low as reasonably achievable to o btain optimal diagnostic quality images. DICOM format image data is available electronically for rev iew and comparison. FINDINGS: Lower Lungs: The visualized lower lungs are clear. Liver: The liver has a homogeneous density without space-occupying lesion. There is no dilation of th e biliary tree. Severe hepatic steatosis is present with areas of focal fatty sparing. Liver is promi nent in size. The gallbladder is unremarkable appearance. Spleen: Homogeneous density without enlargement. Pancreas: Unremarkable without mass or calcification. Kidneys: Normal in size and shape. No evidence of mass or hydronephrosis. Adrenal Glands: Unremarkable. Aorta: The aorta and proximal iliac vessels are grossly unremarkable without aneurysmal dilation. Bowel/Mesentery: The bowel loops are grossly unremarkable. The cecum and sigmoid colon have a normal configuration. There is a normal appendix. Abdominal Wall: Intact. Retroperitoneum: No evidence of adenopathy in the retrocrural, para-aortic, or deep pelvic regions. Bladder: Contours are smooth. Reproductive Organs: No abnormal masses or calcifications seen. Inguinal: The inguinal region is unremarkable without evidence of adenopathy. Bony Structures: Unremarkable. 1. Severe hepatic steatosis with areas of focal fatty sparing. The liver is prominent. 2. Unremarkable bowel gas pattern with no inflammatory change. There is a normal appendix. Electronically signed by: Christian Etienne MD 06/01/2018 11:24 AM EDT
--- NOTE | 2018-06-01 16:57 | P.CONGI ---
History of Present Illness Consult date: 06/01/18 Consult reason: Elevated liver function tests, guaiac positive stools Chief complaint: ETOH gastritis, GI bleed, risk of DT's History of Present Illness: Patient is a 27-year-old gentleman who for the past 2 months has had frequent episodes of nausea and vomiting with inability to hold down much of anything except fluids have been more tolerated than solids he admits to heavy alcohol intake in the past and he has maintained alcohol intake even through the past 2 months but not at the same level he denies any hematemesis coffee-ground emesis denies any melena or hematochezia he denies any over medications or any drug use or abuse he denies any NSAID use he denies any prior history of any gastrointestinal problems as a result of his nausea and vomiting he has not had much in the way of appetite and he has lost some weight Currently patient comfortable in bed with some tremors but otherwise stable Review of Systems All other systems reviewed negative except as stated in HPI [facility] - History History Provided By: Patient - Medical History Medical History: Medical History (Last Reviewed 06/01/18 @ 11:11 by Mary Meehan MD) Alcoholic - Surgical History Surgical History: Surgical History (Last Reviewed 06/01/18 @ 11:12 by Mary Meehan MD) No history of previous surgery - Family History Family History: Family History (Last Updated 06/01/18 @ 11:12 by Mary Meehan MD) Other Coronary disease DM type 2 (diabetes mellitus, type 2) Hypertension - Tobacco History Second Hand Smoke Exposure: No Smoking Status: Never smoker - Alcohol History How Often Do You Have a Drink Containing Alcohol: 4 or more times a week (1.5 L of liquor) - Substance Use History Substance History: No History of Abuse - Travel History Recent Travel in the [facility] Within the Last 8 Weeks: No Recent Travel Out of the Country Within the Last 8 Weeks: No - Immunization History Tetanus Immunization: >5 Years Hx Influenza Vaccine This Season: No Medications and Allergies Active Medications: Active Medications Acetaminophen (Tylenol) 650 mg PO Q4H PRN PRN Reason: Temp > 100.4 Al Hydroxide/Mg Hydroxide (Milk Of Magnesia Liq) 30 ml PO Q12H PRN PRN Reason: Mild Constipation Bisacodyl (Dulcolax Supp) 10 mg RECTAL DAILY PRN PRN Reason: SEVERE CONSITIPATION Chlordiazepoxide (Librium) 10 mg PO Q8H [facility] Last Admin: 06/01/18 11:32 Dose: 10 mg Clonidine HCl (Catapres) 0.1 mg PO Q6H PRN PRN Reason: SYS BP GREATER THAN 150 MMHG Last Admin: 06/01/18 11:32 Dose: 0.1 mg Flumazenil (Romazecon Inj) 0.2 mg IV.PUSH Q1M PRN PRN Reason: OVERSEDATION Haloperidol Lactate (Haldol Inj) 1 mg IV.PUSH Q15M PRN PRN Reason: for severe agitation Sodium Chloride (Ns Inj) 1,000 mls @ 100 mls/hr IV.CONT .Q10H [facility] Last Admin: 06/01/18 13:00 Dose: 100 mls/hr Lactulose (Lactulose Liq) 30 ml PO DAILY PRN PRN Reason: SEVERE CONSITIPATION Lorazepam (Ativan) 1 mg PO Q4H PRN PRN Reason: for CIWA 8-10 Lorazepam (Ativan) 2 mg PO Q2H PRN PRN Reason: for CIWA 11-14 Lorazepam (Ativan Inj) 2 mg IV.PUSH Q2H PRN PRN Reason: for CIWA 11-14 Lorazepam (Ativan Inj) 2 mg IV.PUSH Q1H PRN PRN Reason: for CIWA 15-20 Lorazepam (Ativan Inj) 2 mg IV.PUSH Q15M PRN PRN Reason: for CIWA > 20 Lorazepam (Ativan Inj) 1 mg IV.PUSH Q4H PRN PRN Reason: for CIWA 8-10 Last Admin: 06/01/18 11:28 Dose: 1 mg Ondansetron HCl (Zofran Inj) 4 mg IV.PUSH Q6H PRN PRN Reason: NAUSEA OR VOMITING Pantoprazole Sodium (Protonix Inj) 40 mg IV.PUSH Q12HR [facility] Last Admin: 06/01/18 09:06 Dose: 40 mg Sennosides (Senokot) 17.2 mg PO Q12H PRN PRN Reason: Moderate Constipation Allergies Allergy/AdvReac Type Severity Reaction Status Date / Time No Known Allergies Allergy Unverified 05/31/18 22:20 Home Medications Medication Instructions Recorded Confirmed Type No Known Home Medications 05/31/18 05/31/18 History Exam Vital signs: Vital Signs 05/31/18 21:45 05/31/18 23:00 06/01/18 00:00 Temperature 99.0 F 98.2 F 98.2 F Pulse Rate 138 H 120 H 112 H Respiratory Rate 18 18 16 Blood Pressure 159/114 H 160/102 H 158/85 H Pulse Oximetry 97 98 06/01/18 01:34 06/01/18 01:40 06/01/18 02:00 Temperature Pulse Rate 112 H 110 H Respiratory Rate 22 17 Blood Pressure 177/102 H Pulse Oximetry 06/01/18 03:00 06/01/18 04:00 06/01/18 04:17 Temperature 97.7 F Pulse Rate 100 H 98 H 112 H Respiratory Rate 23 57 H 22 Blood Pressure 150/103 H Pulse Oximetry 06/01/18 04:25 06/01/18 05:00 06/01/18 06:00 Temperature Pulse Rate 110 H 94 H 88 Respiratory Rate 31 H 63 H 58 H Blood Pressure 150/103 H Pulse Oximetry 06/01/18 07:00 06/01/18 08:00 06/01/18 09:00 Temperature 98.2 F 98.1 F Pulse Rate 88 86 92 H Respiratory Rate 62 H 24 24 Blood Pressure 156/102 H Pulse Oximetry 06/01/18 09:12 06/01/18 10:00 06/01/18 11:28 Temperature Pulse Rate 86 116 H Respiratory Rate 57 H 25 H Blood Pressure 156/102 H Pulse Oximetry 06/01/18 11:32 06/01/18 12:00 06/01/18 12:46 Temperature 98.4 F Pulse Rate 94 H 120 H 106 H Respiratory Rate 23 34 H 23 Blood Pressure 146/107 H 147/94 H Pulse Oximetry Intake & Output 05/31/18 06/01/18 06/01/18 18:59 06:59 18:59 Intake Total 2240 / 2240 1000 / 1000 Output Total 1100 / 1100 Balance 1140 / 1140 1000 / 1000 Weight 74.9 kg Intake: IV 1999 1000 / 1000 NS Inj 1,000 ML @ 100 mls/hr IV 1000 / 1000 .CONT .Q10H [facility] Rx#:[id number] NS Inj 1,000 ML @ Wide Open IV. 1999 SIG BOLUS ONE Rx#:[id number] Oral 240 / 240 Output: Urine 1100 / 1100 Other: Date of Last Bowel Movement 05/30/18 Weight On Admission 74.9 kg - Constitutional no acute distress, cooperative - Routine HEENT Exam Head: Present: normocephalic, atraumatic Eye: Present: EOMI, PERRL - Routine Neck Exam Present: supple - Routine Respiratory Exam Present: CTA bilaterally - Routine Cardiovascular Exam Present: RRR. Absent: murmur, gallop - Routine Abdominal Exam Present: soft, normoactive bowel sounds. Absent: tenderness, distended - Routine Extremities Exam Absent: cyanosis, clubbing, edema - Routine Skin Exam Present: dry, warm - Routine Neurological Exam Present: alert, oriented X3 Results - Labs CBC & Chem 7: 06/01/18 05:25 06/01/18 05:20 Labs: Laboratory Results - last 24 hr 05/31/18 05/31/18 05/31/18 22:07 22:07 22:07 CBC w Diff Slide review pending WBC 3.4 L RBC 4.27 L Hgb 14.2 Hct 41.7 MCV 97.6 MCH 33.3 MCHC 34.1 RDW 14.1 Plt Count 147 L MPV 8.5 Neut % (Auto) Lymph % (Auto) Mora % (Auto) Eos % (Auto) Baso % (Auto) Neut # (Auto) Lymph # (Auto) Mora # (Auto) Eos # (Auto) Baso # (Auto) WBC Differential Manual diff final Seg Neuts % (Manual) 57 Lymphocytes % (Manual) 37 Monocytes % (Manual) 4 Basophils % (Manual) 2 Abs Neuts (Manual) 1.9 Differential Comment . Platelet Estimate Low L Platelet Morphology Normal RBC Morphology Normal PT INR APTT Sodium 135 L Potassium 3.4 L Chloride 98 Carbon Dioxide 25.6 Anion Gap 11 BUN 7 Creatinine 1.00 Estimated GFR Greater than 89 Random Glucose 109 H Calcium 9.0 Total Bilirubin 1.8 H AST 566 H ALT 259 H Alkaline Phosphatase 116 Ammonia Total Protein 8.3 H Albumin 3.7 Urine Color Urine Clarity Urine pH Ur Specific [place] Urine Protein Urine Glucose (UA) Urine Ketones Urine Occult Blood Urine Nitrate Urine Bilirubin Urine Urobilinogen Ur Leukocyte Esterase Ur Squamous Epith Cells Micro UA Comment Urine Culture Comments Blood Type O Positive Blood Type Recheck Required Antibody Screen Negative 05/31/18 05/31/18 06/01/18 22:07 22:58 05:20 CBC w Diff WBC RBC Hgb Hct MCV MCH MCHC RDW Plt Count MPV Neut % (Auto) Lymph % (Auto) [place] % (Auto) Eos % (Auto) Baso % (Auto) Neut # (Auto) Lymph # (Auto) Mora # (Auto) Eos # (Auto) Baso # (Auto) WBC Differential Seg Neuts % (Manual) Lymphocytes % (Manual) Monocytes % (Manual) Basophils % (Manual) Abs Neuts (Manual) Differential Comment Platelet Estimate Platelet Morphology RBC Morphology PT 10.5 INR 1.0 APTT 22.7 L Sodium 139 Potassium 3.5 Chloride 102 Carbon Dioxide 27.0 Anion Gap 10 BUN 5 L Creatinine 0.92 Estimated GFR Greater than 89 Random Glucose 100 Calcium 8.2 L D Total Bilirubin 1.8 H AST 399 H ALT 207 H Alkaline Phosphatase 88 Ammonia Total Protein 6.8 D Albumin 3.2 L Urine Color Yellow Urine Clarity Clear Urine pH 6.0 Ur Specific [place] Less/equal 1.005 Urine Protein Negative Urine Glucose (UA) Negative Urine Ketones Negative Urine Occult Blood Negative Urine Nitrate Negative Urine Bilirubin Negative Urine Urobilinogen 0.2 Ur Leukocyte Esterase Negative Ur Squamous Epith Cells 0-5 Micro UA Comment Culture not ind Urine Culture Comments Culture not ind Blood Type Blood Type Recheck Antibody Screen 06/01/18 06/01/18 05:25 12:40 CBC w Diff Auto diff final WBC 3.7 L RBC 3.80 L Hgb 12.6 L Hct 37.2 L MCV 97.8 MCH 33.3 MCHC 34.0 RDW 13.8 Plt Count 126 L MPV 8.8 Neut % (Auto) 43.2 Lymph % (Auto) 47.3 H Mora % (Auto) 8.0 Eos % (Auto) 0.7 Baso % (Auto) 0.8 Neut # (Auto) 1.6 L Lymph # (Auto) 1.8 Mora # (Auto) 0.3 Eos # (Auto) 0.0 Baso # (Auto) 0.0 WBC Differential . Seg Neuts % (Manual) Lymphocytes % (Manual) Monocytes % (Manual) Basophils % (Manual) Abs Neuts (Manual) Differential Comment . Platelet Estimate Platelet Morphology RBC Morphology PT INR APTT Sodium Potassium Chloride Carbon Dioxide Anion Gap BUN Creatinine Estimated GFR Random Glucose Calcium Total Bilirubin AST ALT Alkaline Phosphatase Ammonia 65 H Total Protein Albumin Urine Color Urine Clarity Urine pH Ur Specific [place] Urine Protein Urine Glucose (UA) Urine Ketones Urine Occult Blood Urine Nitrate Urine Bilirubin Urine Urobilinogen Ur Leukocyte Esterase Ur Squamous Epith Cells Micro UA Comment Urine Culture Comments Blood Type Blood Type Recheck Antibody Screen - Imaging Impressions Chest X-Ray 05/31/18 21:59 CONCLUSION: Abdomen/Pelvis CT 06/01/18 07:06 CONCLUSION: Assessment and Plan - Plan Patient with elevated liver function tests etiology unclear but most likely related to alcohol Alcohol dependence Guaiac positive stools with no obvious active bleed at this point in time Patient appears to have some tremors at this point and may be going through withdrawal I do not think he is stable for any endoscopy at this point and that is not required urgently or emergently he could even be done on outpatient basis Liver workup ordered Further recommendations shall depend on his hospital course
[2018-06-01 18:34] LABS: Hematocrit 35.1 % (39.0-51.0); Hemoglobin 12.4 gm/dL (13.0-17.0); Mean Corpuscular HGB Conc 35.3 % (32.0-36.0); Mean Corpuscular Hemoglobin 34.1 pg (27.0-34.0); Mean Corpuscular Volume 96.8 fL (80.0-100.0); Mean Platelet Volume 9.2 fL (7.0-11.0); Platelet Count 125 th/mm3 (150-450); Red Blood Count 3.63 mil/mm3 (4.50-5.90); Red Cell Distribution Width 14.4 % (11.6-17.2); White Blood Count 3.5 th/mm3 (4.0-11.0)
[2018-06-01 18:44] LABS: Chloride 104 meq/L (98-107); Potassium 3.4 meq/L (3.5-5.1); Sodium 138 meq/L (136-145)
[2018-06-01 18:48] LABS: Anion Gap 9 meq/L (5-15); Blood Urea Nitrogen 7 mg/dL (7-18); Carbon Dioxide 25.5 meq/L (21.0-32.0)
[2018-06-01 18:49] LABS: Calcium 8.4 mg/dL (8.5-10.1)
[2018-06-01 18:50] LABS: Glucose,Random 162 mg/dL (74-106)
[2018-06-01 18:51] LABS: Alanine Aminotransferase 203 U/L (12-78); Aspartate Aminotransferase 421 U/L (15-37); Glomerular Filtration Rate Greater Than 89 mL/min (>89)
[2018-06-01 18:53] LABS: Total Protein 6.9 g/dL (6.4-8.2)
[2018-06-01 18:54] LABS: Alkaline Phosphatase 99 U/L (45-117)
[2018-06-01 21:11] LABS: Hepatitits B Surface Antigen Nonreactive (Nonreactive)
[2018-06-01 21:46] LABS: Hepatitis A IgM Antibody Nonreactive (Nonreactive)
[2018-06-01 22:46] LABS: Iron 80 mcg/dL (65-175); Total Iron Binding Capacity 190 mcg/dL (250-450)
[2018-06-02 04:55] LABS: Baso % (Auto) 0.8 % (0.0-2.0); Eos # (Auto) 0.1 th/mm3 (0.0-0.4); Eos % (Auto) 1.4 % (0.0-4.0); Hematocrit 37.8 % (39.0-51.0); Hemoglobin 12.7 gm/dL (13.0-17.0); Lymph # (Auto) 1.4 th/mm3 (1.0-4.8); Lymph % (Auto) 37.1 % (9.0-44.0); Mean Corpuscular HGB Conc 33.5 % (32.0-36.0); Mean Corpuscular Hemoglobin 33.3 pg (27.0-34.0); Mean Corpuscular Volume 99.4 fL (80.0-100.0); Mean Platelet Volume 8.8 fL (7.0-11.0); Mono # (Auto) 0.2 th/mm3 (0.0-0.9); Neut # (Auto) 2.2 th/mm3 (1.8-7.7); Neut % (Auto) 54.7 % (16.0-70.0); Platelet Count 122 th/mm3 (150-450); Red Blood Count 3.81 mil/mm3 (4.50-5.90); Red Cell Distribution Width 14.1 % (11.6-17.2); White Blood Count 3.9 th/mm3 (4.0-11.0)
[2018-06-02 05:03] LABS: Chloride 107 meq/L (98-107); Potassium 3.6 meq/L (3.5-5.1); Sodium 142 meq/L (136-145)
[2018-06-02 05:07] LABS: Calcium 8.3 mg/dL (8.5-10.1)
[2018-06-02 05:08] LABS: Anion Gap 11 meq/L (5-15); Blood Urea Nitrogen 6 mg/dL (7-18); Carbon Dioxide 23.9 meq/L (21.0-32.0); Glucose,Random 99 mg/dL (74-106)
[2018-06-02 05:11] LABS: Glomerular Filtration Rate Greater Than 89 mL/min (>89)
[2018-06-02] MEDS: Sod Chloride 0.9% Inj 1,000 ML IV.CONT SCH (07:41)
[2018-06-02] MEDS: Pantoprazole Inj 40 MG Vial IV.PUSH SCH (07:41)
--- NOTE | 2018-06-02 11:46 | P.PNIM ---
Subjective Interval history: Patient seen and evaluated for alcohol dependency issues and gastritis. Better today. Further complaints. Discharge plans discussed with patient. Physical Exam Vital signs: Vital Signs 06/01/18 12:00 06/01/18 12:46 06/01/18 13:00 Temperature 98.4 F Pulse Rate 120 H 106 H 96 H Respiratory Rate 34 H 23 21 Blood Pressure 147/94 H Pulse Oximetry 06/01/18 14:00 06/01/18 15:00 06/01/18 16:00 Temperature Pulse Rate 84 80 74 Respiratory Rate 17 18 15 Blood Pressure Pulse Oximetry 06/01/18 16:51 06/01/18 17:00 06/01/18 18:00 Temperature 98.5 F Pulse Rate 82 80 96 H Respiratory Rate 22 17 18 Blood Pressure 137/93 H Pulse Oximetry 06/01/18 19:19 06/01/18 20:00 06/01/18 21:00 Temperature 98.2 F Pulse Rate 122 H 96 H 88 Respiratory Rate 27 H 19 25 H Blood Pressure 143/86 H 143/86 H Pulse Oximetry 06/01/18 22:00 06/01/18 23:00 06/01/18 23:49 Temperature Pulse Rate 84 86 104 H Respiratory Rate 21 0 L 0 L Blood Pressure 137/87 Pulse Oximetry 06/02/18 00:00 06/02/18 01:00 06/02/18 02:00 Temperature 97.8 F Pulse Rate 94 H 80 76 Respiratory Rate 21 17 17 Blood Pressure 137/87 Pulse Oximetry 06/02/18 03:00 06/02/18 04:00 06/02/18 04:14 Temperature 97.7 F Pulse Rate 70 76 90 Respiratory Rate 17 20 45 H Blood Pressure 140/98 H 140/98 H Pulse Oximetry 100 06/02/18 05:00 06/02/18 06:00 06/02/18 07:00 Temperature Pulse Rate 80 74 84 Respiratory Rate 17 19 16 Blood Pressure Pulse Oximetry 06/02/18 07:46 06/02/18 07:51 06/02/18 07:55 Temperature 98.1 F 98.1 F Pulse Rate 80 80 Respiratory Rate 26 H Blood Pressure 141/91 H Pulse Oximetry Intake & Output 06/01/18 06/02/18 06/02/18 18:59 06:59 18:59 Intake Total 1000 / 1000 1360 / 1360 1000 / 1000 Output Total 1400 / 1400 Balance -400 / -400 1360 / 1360 1000 / 1000 Weight 74.4 kg Intake: IV 1000 / 1000 1000 / 1000 1000 / 1000 NS Inj 1,000 ML @ 100 mls/hr IV 1000 / 1000 1000 / 1000 1000 / 1000 .CONT .Q10H URSZULA Rx#:[id number] Oral 360 / 360 Output: Urine 1400 / 1400 Other: # Urine Diapers 4 Date of Last Bowel Movement 05/30/18 05/30/18 Narrative: GENERAL: Patient calm resting and without complaints SKIN: Warm and dry. No rashes or ecchymotic injuries EYES: Pupils equal and round. No scleral icterus. No injection or drainage. ENT: External ear exam normal. No acute nasal bleeding or discharge. Mucous membranes pink and moist. CARDIOVASCULAR: Regular rate and rhythm. No murmurs gallops or rubs appreciated RESPIRATORY: Good air flow and effort without accessory muscle use. Clear to auscultation. Breath sounds equal bilaterally. GASTROINTESTINAL: Abdomen soft, non-tender, nondistended. Hepatic and splenic margins not palpable. MUSCULOSKELETAL: Extremities without clubbing, cyanosis, or edema. No obvious deformities. NEUROLOGICAL: Awake and alert. No obvious cranial nerve deficits. Motor grossly within normal limits. Five out of 5 muscle strength in the arms and legs. Normal speech. Results - Labs CBC & Chem 7: 06/02/18 04:42 06/02/18 04:42 Laboratory Results - last 24 hr 06/01/18 06/01/18 06/01/18 12:40 12:40 18:15 CBC w Diff WBC 3.5 L RBC 3.63 L Hgb 12.4 L Hct 35.1 L MCV 96.8 MCH 34.1 H MCHC 35.3 RDW 14.4 Plt Count 125 L MPV 9.2 Neut % (Auto) Lymph % (Auto) [place] % (Auto) Eos % (Auto) Baso % (Auto) Neut # (Auto) Lymph # (Auto) [place] # (Auto) Eos # (Auto) Baso # (Auto) WBC Differential Differential Comment Sodium Potassium Chloride Carbon Dioxide Anion Gap BUN Creatinine Estimated GFR Random Glucose Calcium Iron TIBC % Saturation Total Bilirubin AST ALT Alkaline Phosphatase Ammonia 65 H Total Protein Albumin TSH Hepatitis A IgM Ab Nonreactive Hep Bs Antigen Nonreactive Hep B Core IgM Ab Nonreactive Hep C IgG Ab Nonreactive 06/01/18 06/02/18 06/02/18 18:15 04:42 04:42 CBC w Diff Auto diff final WBC 3.9 L RBC 3.81 L Hgb 12.7 L Hct 37.8 L MCV 99.4 MCH 33.3 MCHC 33.5 RDW 14.1 Plt Count 122 L MPV 8.8 Neut % (Auto) 54.7 Lymph % (Auto) 37.1 [place] % (Auto) 6.0 Eos % (Auto) 1.4 Baso % (Auto) 0.8 Neut # (Auto) 2.2 Lymph # (Auto) 1.4 [place] # (Auto) 0.2 Eos # (Auto) 0.1 Baso # (Auto) 0.0 WBC Differential . Differential Comment . Sodium 138 142 Potassium 3.4 L 3.6 Chloride 104 107 Carbon Dioxide 25.5 23.9 Anion Gap 9 11 BUN 7 6 L Creatinine 0.89 0.82 Estimated GFR Greater than 89 Greater than 89 Random Glucose 162 H 99 Calcium 8.4 L 8.3 L Iron 80 TIBC 190 L % Saturation 42.0 Total Bilirubin 1.9 H AST 421 H ALT 203 H Alkaline Phosphatase 99 Ammonia Total Protein 6.9 Albumin 3.0 L TSH 5.930 H Hepatitis A IgM Ab Hep Bs Antigen Hep B Core IgM Ab Hep C IgG Ab - Imaging Impressions Chest X-Ray 05/31/18 21:59 CONCLUSION: No acute cardiopulmonary process. Assessment and Plan - Assessment (1) Elevated LFTs Code(s): R94.5 - Abnormal results of liver function studies Status: Acute Plan: Patient has severe steatosis imaging with alcoholic cirrhosis (2) Elevated blood pressure reading Code(s): R03.0 - Elevated blood-pressure reading, without diagnosis of hypertension Status: Acute Plan: Probably secondary to acute alcohol withdrawal We will add clonidine Continue telemetry Continue [facility]wa evaluation (3) Heme positive stool Code(s): R19.5 - Other fecal abnormalities Status: Acute Plan: Patient with long-standing history of alcohol consumption and may have evidence of gastritis or ulceration Hemoglobin stable Continue proton pump inhibitor (4) Tachycardia Code(s): R00.0 - Tachycardia, unspecified Status: Acute Plan: Continue telemetry Continue with CIWA assessments Add Librium for acute alcohol withdrawal (5) Anemia Code(s): D64.9 - Anemia, unspecified Status: Acute Plan: Likely secondary to acute GI losses Follow-up hemoglobin and transfuse as needed Endoscopy gastritis versus ulceration Continue proton pump inhibitor (6) Alcohol dependence Code(s): F10.20 - Alcohol dependence, uncomplicated Status: Acute Plan: Patient admits to dui charges, 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
[2018-06-02 12:35] LABS: Albumin 3.1 g/dL (3.4-5.0)
[2018-06-02 12:39] LABS: Total Protein 6.6 g/dL (6.4-8.2)
[2018-06-02 13:45] VITALS: RESP 18
[2018-06-02 17:00] VITALS: BP 136/95; PULSE 80; TEMP 97.7; O2SAT 98
--- NOTE | 2018-06-02 17:00 | P.PNGI ---
Subjective Interval history: Sitting in bed eating his food denies any pain feeling much better Physical Exam Vital signs: Vital Signs 06/01/18 17:00 06/01/18 18:00 06/01/18 19:19 Temperature Pulse Rate 80 96 H 122 H Respiratory Rate 17 18 27 H Blood Pressure 143/86 H Pulse Oximetry 06/01/18 20:00 06/01/18 21:00 06/01/18 22:00 Temperature 98.2 F Pulse Rate 96 H 88 84 Respiratory Rate 19 25 H 21 Blood Pressure 143/86 H Pulse Oximetry 06/01/18 23:00 06/01/18 23:49 06/02/18 00:00 Temperature 97.8 F Pulse Rate 86 104 H 94 H Respiratory Rate 0 L 0 L 21 Blood Pressure 137/87 137/87 Pulse Oximetry 06/02/18 01:00 06/02/18 02:00 06/02/18 03:00 Temperature Pulse Rate 80 76 70 Respiratory Rate 17 17 17 Blood Pressure Pulse Oximetry 06/02/18 04:00 06/02/18 04:14 06/02/18 05:00 Temperature 97.7 F Pulse Rate 76 90 80 Respiratory Rate 20 45 H 17 Blood Pressure 140/98 H 140/98 H Pulse Oximetry 100 06/02/18 06:00 06/02/18 07:00 06/02/18 07:46 Temperature 98.1 F Pulse Rate 74 84 80 Respiratory Rate 19 16 26 H Blood Pressure 141/91 H Pulse Oximetry 06/02/18 07:51 06/02/18 07:55 06/02/18 12:00 Temperature 98.1 F 97.9 F Pulse Rate 80 85 Respiratory Rate 18 Blood Pressure 133/84 Pulse Oximetry 99 Intake & Output 06/01/18 06/02/18 06/02/18 18:59 06:59 18:59 Intake Total 1000 / 1000 1360 / 1360 1000 / 1000 Output Total 1400 / 1400 Balance -400 / -400 1360 / 1360 1000 / 1000 Weight 74.4 kg Intake: IV 1000 / 1000 1000 / 1000 1000 / 1000 NS Inj 1,000 ML @ 100 mls/hr IV 1000 / 1000 1000 / 1000 1000 / 1000 .CONT .Q10H URSZULA Rx#:[id number] Oral 360 / 360 Output: Urine 1400 / 1400 Other: # Urine Diapers 4 Date of Last Bowel Movement 05/30/18 05/30/18 - Constitutional no acute distress - Routine HEENT Exam Head: Present: normocephalic Eye: Present: EOMI ENT: Present: mucous membranes moist - Routine Neck Exam Present: supple - Routine Respiratory Exam Present: CTA bilaterally - Routine Cardiovascular Exam Present: RRR - Routine Abdominal Exam Present: soft, normoactive bowel sounds. Absent: tenderness, distended, rebound - Routine Extremities Exam Absent: cyanosis, clubbing, edema Results - Labs CBC & Chem 7: 06/02/18 04:42 06/02/18 04:42 Laboratory Results - last 24 hr 06/01/18 06/01/18 06/01/18 12:40 18:15 18:15 CBC w Diff WBC 3.5 L RBC 3.63 L Hgb 12.4 L Hct 35.1 L MCV 96.8 MCH 34.1 H MCHC 35.3 RDW 14.4 Plt Count 125 L MPV 9.2 Neut % (Auto) Lymph % (Auto) [place] % (Auto) Eos % (Auto) Baso % (Auto) Neut # (Auto) Lymph # (Auto) [place] # (Auto) Eos # (Auto) Baso # (Auto) WBC Differential Differential Comment Sodium 138 Potassium 3.4 L Chloride 104 Carbon Dioxide 25.5 Anion Gap 9 BUN 7 Creatinine 0.89 Estimated GFR Greater than 89 Random Glucose 162 H Calcium 8.4 L Iron 80 TIBC 190 L % Saturation 42.0 Total Bilirubin 1.9 H Direct Bilirubin Indirect Bilirubin AST 421 H ALT 203 H Alkaline Phosphatase 99 Total Protein 6.9 Albumin 3.0 L TSH 5.930 H Free T3 Hepatitis A IgM Ab Nonreactive Hep Bs Antigen Nonreactive Hep B Core IgM Ab Nonreactive Hep C IgG Ab Nonreactive 06/02/18 06/02/18 06/02/18 04:42 04:42 04:42 CBC w Diff Auto diff final WBC 3.9 L RBC 3.81 L Hgb 12.7 L Hct 37.8 L MCV 99.4 MCH 33.3 MCHC 33.5 RDW 14.1 Plt Count 122 L MPV 8.8 Neut % (Auto) 54.7 Lymph % (Auto) 37.1 [place] % (Auto) 6.0 Eos % (Auto) 1.4 Baso % (Auto) 0.8 Neut # (Auto) 2.2 Lymph # (Auto) 1.4 [place] # (Auto) 0.2 Eos # (Auto) 0.1 Baso # (Auto) 0.0 WBC Differential . Differential Comment . Sodium 142 Potassium 3.6 Chloride 107 Carbon Dioxide 23.9 Anion Gap 11 BUN 6 L Creatinine 0.82 Estimated GFR Greater than 89 Random Glucose 99 Calcium 8.3 L Iron TIBC % Saturation Total Bilirubin 1.6 H Direct Bilirubin 0.8 H Indirect Bilirubin 0.8 AST 360 H ALT 187 H Alkaline Phosphatase 86 Total Protein 6.6 Albumin 3.1 L TSH Free T3 Hepatitis A IgM Ab Hep Bs Antigen Hep B Core IgM Ab Hep C IgG Ab 06/02/18 04:42 CBC w Diff WBC RBC Hgb Hct MCV MCH MCHC RDW Plt Count MPV Neut % (Auto) Lymph % (Auto) [place] % (Auto) Eos % (Auto) Baso % (Auto) Neut # (Auto) Lymph # (Auto) [place] # (Auto) Eos # (Auto) Baso # (Auto) WBC Differential Differential Comment Sodium Potassium Chloride Carbon Dioxide Anion Gap BUN Creatinine Estimated GFR Random Glucose Calcium Iron TIBC % Saturation Total Bilirubin Direct Bilirubin Indirect Bilirubin AST ALT Alkaline Phosphatase Total Protein Albumin TSH Free T3 3.06 Hepatitis A IgM Ab Hep Bs Antigen Hep B Core IgM Ab Hep C IgG Ab - Imaging Impressions Chest X-Ray 05/31/18 21:59 CONCLUSION: No acute cardiopulmonary process. Assessment and Plan - Plan Patient with elevated liver function tests etiology unclear but most likely related to alcohol Alcohol dependence Guaiac positive stools with no obvious active bleed at this point in time Patient appears to be more relaxed in bed I do not think he is stable for any endoscopy at this point and that is not required urgently or emergently he could even be done on outpatient basis there is no evidence of any active bleeding Liver workup ordered so far unremarkable with negative hepatitis profile Further recommendations shall depend on his hospital course
[2018-06-03 14:19] LABS: Smooth Muscle Total Auto Abs Negative (Negative)
[2018-06-04 19:52] LABS: Ceruloplasmin 15 mg/dL (18-36)
[2018-06-06 03:50] LABS: DS DNA Ab (Crithidia) NEGATIVE (NEGATIVE)
[2018-06-07 03:50] LABS: IgA Serum 349 mg/dL (81-463); Tissue Transglutaminase Ab IgG ND U/mL (())
== END 2018-06-02 17:27 | disposition home or self-care (01) ==
LOC: PHED 21:33 → PH3 21:33 → PHEDA 21:33 → PHICU 06-01 01:32 → PH3 06-02 08:53
PROVIDERS: ADMIT Hospitalist; ATTEND Hospitalist